=== PATIENT | male | born 1965 | race Two or more races ===

== ENCOUNTER 2024-01-20 06:52 | Inpatient (IN) | payer MEDICAID, OTHER ==
[~2024-01-20] VITALS: Ht 157.5 cm; Wt 73.4 kg
[2024-01-20 07:30] VITALS: PULSE 86; RESP 16; O2SAT 97
[2024-01-20] MEDS: KETOROLAC TROMETH 30 MG/ML 1ML VIAL IV ONE (07:55)
[2024-01-20] MEDS: METOCLOPRAMIDE HCL 5MG/ml INJ 2ml VIAL IV ONE (07:55)
[2024-01-20] MEDS: SODIUM CHLORIDE 0.9% 1,000 ML IV ONE (07:56)
[2024-01-20 08:00] LABS: Urine Bacteria None Seen /hpf (None Seen)
[2024-01-20 08:24] LABS: Basophils # (auto) 0 10 ^3/uL (0-0.2); Basophils % (auto) 0.2 % (0.0-2.0); Mean Corpuscular Hgb Conc. 34.4 g/dL (32.0-36.0)
[2024-01-20 08:25] LABS: Eosinophils # (auto) 0.1 10 ^3/uL (0-0.8); Eosinophils % (auto) 0.4 % (0.0-7.0); Hematocrit 40.9 % (41.0-53.0); Lymphocytes # (auto) 0.9 10 ^3/uL (0.4-5.4); Lymphocytes % (auto) 6.1 % (10.0-50.0); Mean Corpuscular Hemoglobin 34.5 pg (28.0-32.0); Mean Corpuscular Volume 100.4 fL (80.0-100.0); Monocytes # (auto) 0.8 10 ^3/uL (0-1.3); Monocytes % (auto) 5.2 % (0.0-12.0); Neutrophils # (auto) 12.8 10 ^3/uL (1.6-8.6); Neutrophils % (auto) 88.1 % (37.0-80.0); Platelet Count (auto) 213 10^3/uL (140-450); Red Blood Cells 4.07 10^6/uL (4.5-5.90); Red Cell Distribution Width 12.8 % (11.8-14.3); White Blood Cell 14.5 10^3/uL (4.4-10.8)
[2024-01-20 08:25] LABS: Urine Blood Negative /uL (Negative); Urine Clarity Clear (Clear); Urine Color Light-Yellow (Yellow); Urine Mucus FEW (None Seen); Urine Protein, UAD TRACE (Negative); Urine Urobilinogen Normal (Negative); Urine WBC 1 /hpf (0 - 3); Urine pH 5.5 (5.0-9.0)
[2024-01-20 08:31] LABS: Chloride 105 mmol/L (98-107); Potassium 3.9 mmol/L (3.5-5.1); Sodium 134 mmol/L (136-145)
[2024-01-20 08:32] LABS: Anion Gap 6 (5-15); Carbon Dioxide 23 mmol/L (20-31)
[2024-01-20 08:33] LABS: Calcium 9.4 mg/dL (8.7-10.4)
[2024-01-20 08:37] LABS: BUN/Creatinine Ratio 13.7 (10.0-20.0); Blood Urea Nitrogen 13 mg/dL (9-23); Glucose 209 mg/dL (74-106)
[2024-01-20] MEDS: ONDANSETRON HCL 4 MG/2 ML VIAL IV ONE (09:05)
[2024-01-20] MEDS: MORPHINE SULFATE INJ 2 MG/ml SYRG IV ONE (09:07)
[2024-01-20] MEDS: PIPERACILLIN-TAZOB 3.375GM 100 ML IV ONE (09:48)
[2024-01-20] MEDS: cefTRIAXone 1GM/50ML D5W 50 ML IV ONE (09:48)
[2024-01-20] MEDS ORDERED: ONDANSETRON HCL 4 MG/2 ML VIAL IV PRN (11:30)
[2024-01-20] MEDS ORDERED: DEXTROSE (50%) 50ML SYRG IV PRN (11:45)
[2024-01-20] MEDS: HYDROcodone-ACET 5/325MG TAB PO PRN (15:07)
[2024-01-20] MEDS: InsuLIN REG 1unit/0.01ml Soln (100units/ml) SC SCH ×2 (17:00→21:57)
[2024-01-20] MEDS: ACCU-CHEK COMFORT CURVE STRIP VI SCH (17:23)
[2024-01-20 19:35] VITALS: PULSE 99; RESP 25; O2SAT 92
[2024-01-20 20:59] VITALS: BP 108/64; PULSE 96; RESP 19; TEMP 100; O2SAT 97
[2024-01-20 22:30] VITALS: TEMP 98.6
[2024-01-21] VITALS (7 sets, daily range): BP systolic 101–122; BP diastolic 61–74; PULSE 83–97; RESP 17–20; TEMP 98.4–99.3; O2SAT 93–98
[2024-01-21] MEDS ORDERED: ACETAMINOPHEN 325 MG TAB PO PRN (03:15)
[2024-01-21 06:42] LABS: Chloride 106 mmol/L (98-107); Sodium 136 mmol/L (136-145)
[2024-01-21 06:43] LABS: Anion Gap 5 (5-15); Carbon Dioxide 25 mmol/L (20-31)
[2024-01-21 06:44] LABS: Calcium 8.9 mg/dL (8.7-10.4)
[2024-01-21 06:49] LABS: BUN/Creatinine Ratio 11.5 (10.0-20.0); Blood Urea Nitrogen 9 mg/dL (9-23)
[2024-01-21 06:56] LABS: Glucose 108 mg/dL (74-106)
[2024-01-21 07:19] LABS: Basophils # (auto) 0 10 ^3/uL (0-0.2); Basophils % (auto) 0.3 % (0.0-2.0); Eosinophils # (auto) 0.2 10 ^3/uL (0-0.8); Eosinophils % (auto) 1.2 % (0.0-7.0); Lymphocytes # (auto) 1.9 10 ^3/uL (0.4-5.4); Mean Corpuscular Hgb Conc. 35.1 g/dL (32.0-36.0); Neutrophils % (auto) 77.6 % (37.0-80.0)
[2024-01-21 07:22] LABS: Lymphocytes % (auto) 13.6 % (10.0-50.0); Mean Corpuscular Hemoglobin 35.3 pg (28.0-32.0); Mean Corpuscular Volume 100.6 fL (80.0-100.0); Monocytes % (auto) 7.3 % (0.0-12.0); Neutrophils # (auto) 10.9 10 ^3/uL (1.6-8.6); Platelet Count (auto) 208 10^3/uL (140-450); Red Blood Cells 3.68 10^6/uL (4.5-5.90); Red Cell Distribution Width 12.9 % (11.8-14.3)
[2024-01-21] MEDS ORDERED: CIPROFLOXACIN 400MG/200ML 200 ML IV SCH (09:00)
[2024-01-21] MEDS: CIPROFLOXACIN 400MG/200ML 200 ML IV SCH (09:37)
[2024-01-21 11:03] LABS: Erythrocyte Sedimentation Rate 31 mm/hr (0-20)
[2024-01-21] MEDS: MORPHINE SULFATE INJ 2 MG/ml SYRG IV PRN (20:53)
[2024-01-22 01:00] VITALS: BP 123/73; PULSE 86; RESP 18; TEMP 99.1; O2SAT 95
[2024-01-22 05:00] VITALS: BP 105/65; PULSE 82; RESP 18; TEMP 98; O2SAT 93
[2024-01-22 08:00] VITALS: PULSE 71; RESP 19; O2SAT 92
[2024-01-22 08:59] LABS: Eosinophils # (auto) 0.1 10 ^3/uL (0-0.8); Hematocrit 41.8 % (41.0-53.0); Lymphocytes # (auto) 1.4 10 ^3/uL (0.4-5.4)
[2024-01-22 09:00] VITALS: BP 117/81; PULSE 71; RESP 19; TEMP 98.6; O2SAT 92
[2024-01-22 09:00] LABS: Basophils # (auto) 0 10 ^3/uL (0-0.2); Basophils % (auto) 0.5 % (0.0-2.0); Eosinophils % (auto) 1.6 % (0.0-7.0); Hemoglobin 14.6 g/dL (13.5-17.5); Mean Corpuscular Hemoglobin 35.2 pg (28.0-32.0); Mean Corpuscular Volume 100.5 fL (80.0-100.0); Monocytes # (auto) 0.4 10 ^3/uL (0-1.3); Monocytes % (auto) 5.7 % (0.0-12.0); Neutrophils # (auto) 5.7 10 ^3/uL (1.6-8.6); Neutrophils % (auto) 74.2 % (37.0-80.0); Platelet Count (auto) 253 10^3/uL (140-450); Red Blood Cells 4.16 10^6/uL (4.5-5.90); Red Cell Distribution Width 12.7 % (11.8-14.3); White Blood Cell 7.6 10^3/uL (4.4-10.8)
[2024-01-22 09:07] LABS: Anion Gap 5 (5-15); Calcium 9.9 mg/dL (8.7-10.4); Carbon Dioxide 29 mmol/L (20-31); Chloride 104 mmol/L (98-107); Potassium 4.3 mmol/L (3.5-5.1); Sodium 138 mmol/L (136-145)
[2024-01-22 09:13] LABS: BUN/Creatinine Ratio 14.8 (10.0-20.0); Blood Urea Nitrogen 13 mg/dL (9-23); Glucose 112 mg/dL (74-106)
[2024-01-22] MEDS ORDERED: CIPR250T26 PO (10:45)
[2024-01-22] MEDS ORDERED: CIPR-173 PO (12:46)
[2024-01-22 13:08] VITALS: BP 119/74; PULSE 71; RESP 18; TEMP 98; O2SAT 94
== END 2024-01-22 14:00 | disposition home or self-care (01) | DRG 720 ==
LOC: ER 06:52 → OVERFLOW 11:27 → EAST 20:54
PROVIDERS: ADMIT Internal Medicine; ATTEND Internal Medicine
DX: A41.9 Sepsis, unspecified organism (principal); N30.90 Cystitis, unspecified without hematuria; N45.3 Epididymo-orchitis; N40.0 Benign prostatic hyperplasia without lower urinary tract symptoms; E11.65 Type 2 diabetes mellitus with hyperglycemia; E66.9 Obesity, unspecified; Z68.30 Body mass index [BMI] 30.0-30.9, adult; F10.139 Alcohol abuse with withdrawal, unspecified; Y90.9 Presence of alcohol in blood, level not specified
CPT/HCPCS: 36415; 74176; 76870; 80048; 81001; 82306; 82607; 82962; 83036; 84443; 85025; 85652; 86703; 86735; 87086; 96361; 96365; 96368; 96375; G0378; J1815; J1885; J2405; J2543